=== PATIENT | male | born 1965 | race African-American/Black ===

== ENCOUNTER 2017-02-06 11:13 | Emergency (ER) | payer MEDICAID ==
[~2017-02-06] VITALS: Ht 170.2 cm; Wt 110.0 kg
[~2017-02-06 11:13] MED LIST: FLUT12HF IH; HYDR-3307 PO; LISI2.5T PO; TIZA4CAP2 PO
[2017-02-06] MEDS ORDERED: ALBU8.5H8 INH (11:59)
[2017-02-06 12:19] LABS: HEMATOCRIT 42.9 % (39.2-51.8); HEMOGLOBIN 14.3 g/dL (13.7-18.0); WHITE BLOOD COUNT 7.9 x10^3/uL (3.4-10)
[2017-02-06 12:27] LABS: ASPARTATE AMINO TRANSFERASE 21 U/L (15-37); BLOOD UREA NITROGEN 14 mg/dL (7-18)
[2017-02-06 14:35] VITALS: BP 129/84
== END 2017-02-06 15:14 | disposition home or self-care (01) ==
LOC: ED 12:16
DX: R10.9 Unspecified abdominal pain (principal); I10 Essential (primary) hypertension; Z90.49 Acquired absence of other specified parts of digestive tract; J44.9 Chronic obstructive pulmonary disease, unspecified; F20.9 Schizophrenia, unspecified
CPT/HCPCS: 36415; 74176; 80053; 81003; 83690; 85025; 99285

== ENCOUNTER 2018-03-28 12:01 | Emergency (ER) | payer MEDICAID ==
[~2018-03-28] VITALS: Ht 165.1 cm; Wt 117.5 kg
[~2018-03-28 12:01] MED LIST changes: +ALBU8.5H8 INH; +DOXE45CR5 PO; +GABA300C10 PO; +LISI-170 PO; +PHEN473S4 PO
[2018-03-28 12:23] VITALS: BP 124/84
--- NOTE | 2018-03-28 12:25 | NUR ---
PT ARRIVES VIA EMS FROM HOME WITH C/O OF CHEST PAIN ON LEFT SIDE X 2 DAYS. PT ON EXAM IS DIZZY FROM FENTANYL PUSH HE RECIEVED IN ROUTE OF 100MICS. PT REPROTS CHEST PAIN ONLY WENT DOWN TO A 5 FROM 8. HE REPORTS THE CHEST PAIN STABBING. DENIES RADIATION. PT ON ARRIVAL DOES HAVE VERY LIGHT WHEEZING HEARD THROUGHOUT HIS LUNGS ON AUSCULTATION. PT DENIES TRAUMA. PT CONNECTED TO ALL MONITORS AND CALL LIGHT IN REACH. AWAITING FURTHER ORDERS AT THIS TIME. PT IS RESTING IN BED.
[2018-03-28 12:30] LABS: BASOPHILS # (AUTO) 0.01 x10^3/uL (0-0.1); BASOPHILS % (AUTO) 0 % (0-1); EOSINOPHILS # (AUTO) 0.09 x10^3/uL (0-0.4); EOSINOPHILS % (AUTO) 2 % (1-7); LYMPHOCYTES # (AUTO) 1.39 x10^3/uL (1-3.4); LYMPHOCYTES % (AUTO) 23 % (22-44); MD NO; MEAN CORPUSCULAR HEMOGLOBIN 26.4 pg (27.5-34.5); MEAN CORPUSCULAR HGB CONC 32.9 g/dL (33.2-36.2); MEAN CORPUSCULAR VOLUME 80.4 fL (81-97); MEAN PLATELET VOLUME 8.2 fL (7.4-10.4); MONOCYTES # (AUTO) 0.54 x10^3/uL (0.2-0.8); MONOCYTES % (AUTO) 9 % (2-9); NEUTROPHILS # (AUTO) 3.94 x10^3/uL (1.8-6.8); NEUTROPHILS % (AUTO) 66 % (42-75); PLATELET COUNT 203 x10^3/uL (130-400); RED BLOOD COUNT 5.49 x10^6/uL (4.38-5.82); RED CELL DISTRIBUTION WIDTH 16.5 % (9.4-14.8)
[2018-03-28] MEDS ORDERED: MORPHINE SULFATE 4 MG/ML, 1ML IVPush PRN (12:30)
[2018-03-28] MEDS ORDERED: SODIUM CHLORIDE FLUSH 10ML SYR IVF ONE (12:30)
[2018-03-28] MEDS ORDERED: ONDANSETRON 2MG/ML, 2ML ONE (12:37)
[2018-03-28 12:44] LABS: ALANINE AMINOTRANSFERASE 24 U/L (12-78); ALBUMIN 3.4 g/dL (3.4-5.0); ANION GAP 4 mmol/L (5-15); CHLORIDE 106 mmol/L (98-107); CREATININE 1.02 mg/dL (0.7-1.3)
[2018-03-28 12:48] LABS: ALKALINE PHOSPHATASE 123 U/L (45-117); BILIRUBIN,TOTAL 0.3 mg/dL (0.2-1.0); TOTAL PROTEIN 7.4 g/dL (6.4-8.2); TROPONIN I < 0.015 ng/mL (0.000-0.045)
[2018-03-28] MEDS ORDERED: ONDANSETRON 2MG/ML, 2ML IVPush ONE (13:00)
[2018-03-28] MEDS ORDERED: KETOROLAC 30 MG/1 ML IVPush ONE (13:30)
--- NOTE | 2018-03-28 13:30 | NUR ---
pt found in low 80s spo2, pt refusing tbadm at this time. spoek with pt about risks of going home and potential cardiac arrest. Pt at this time would like to still go home. Pt signed ama form.
== END 2018-03-28 14:04 | disposition home or self-care (01) ==
LOC: ED 13:30
DX: R07.89 Other chest pain (principal); J43.9 Emphysema, unspecified; R73.09 Other abnormal glucose; I10 Essential (primary) hypertension; M54.9 Dorsalgia, unspecified; G89.29 Other chronic pain; Z87.891 Personal history of nicotine dependence; F31.9 Bipolar disorder, unspecified; F20.9 Schizophrenia, unspecified; Z90.49 Acquired absence of other specified parts of digestive tract
CPT/HCPCS: 36415; 71046; 80053; 84484; 85025; 93005; 96374; 99284; J2405; J7512

== ENCOUNTER 2018-04-01 16:54 | Emergency (ER) | payer MEDICAID ==
[~2018-04-01] VITALS: Ht 170.2 cm; Wt 116.0 kg
[2018-04-01 17:29] LABS: MEAN CORPUSCULAR HEMOGLOBIN 27.2 pg (27.5-34.5); MEAN CORPUSCULAR HGB CONC 33.5 g/dL (33.2-36.2); MEAN PLATELET VOLUME 8.3 fL (7.4-10.4); PLATELET COUNT 243 x10^3/uL (130-400); RED CELL DISTRIBUTION WIDTH 16.7 % (9.4-14.8)
--- NOTE | 2018-04-01 17:34 | NUR ---
PT TO ROOM FROM LOBBY AT THIS TIME.
[2018-04-01 17:39] LABS: ALANINE AMINOTRANSFERASE 22 U/L (12-78); ALBUMIN 3.5 g/dL (3.4-5.0); ANION GAP 6 mmol/L (5-15); CALCIUM 9.1 mg/dL (8.5-10.1); CHLORIDE 103 mmol/L (98-107); CREATININE 1.19 mg/dL (0.7-1.3)
[2018-04-01 17:41] LABS: ALKALINE PHOSPHATASE 147 U/L (45-117); BILIRUBIN,TOTAL 0.3 mg/dL (0.2-1.0); TOTAL PROTEIN 7.8 g/dL (6.4-8.2)
[2018-04-01] MEDS ORDERED: ACETAMINOPHEN 325 MG TABLET PO ONE (18:00)
[2018-04-01] MEDS ORDERED: ALBUTEROL/IPRATROPIUM 2.5MG/0.5MG, 3 ML NPPB SCH (18:00)
[2018-04-01 18:04] LABS: MD YES
[2018-04-01 18:10] LABS: BASOS#(MANUAL) 0.09 x10^3/uL (0-0.1); BASOS% (MANUAL) 1 % (0-1); LYMPH#(MANUAL) 1.07 x10^3/uL (1-3.4); LYMPHS% (MANUAL) 12 % (22-44); MONOS#(MANUAL) 0.45 x10^3/uL (0.3-2.7); MONOS% (MANUAL) 5 % (2-9); REACTIVE LYMPHS # (MANUAL) 0.45 x10^3/uL (0-0); REACTIVE LYMPHS % (MANUAL) 5 % (0-0); SEG#(MANUAL) 6.85 x10^3/uL (1.8-6.8); SEGS% (MANUAL) 77 % (42-75)
[2018-04-01 18:11] LABS: <PLATELET ESTIMATE> ADEQUATE; <PLT MORPHOLOGY> NORMAL PLT MORPH; <RBC MORPHOLOGY> NORMAL
--- NOTE | 2018-04-01 18:53 | NUR ---
RECEIVED BS REPORT FROM SEDRICK VELAZQUEZ TO ASSUME PT. CARE AT THIS TIME. PT. RESTING ON GURNEY WITH NADN. CALL LIGHT IN REACH. ALL SAFETY MEASURES OBSERVED. ALL MONITORS IN PLACE.
--- NOTE | 2018-04-01 19:01 | NUR ---
DR. HOGAN AT TO DISCUSS POC WITH PT.
[2018-04-01] MEDS ORDERED: KETOROLAC 30 MG/1 ML ONE (19:15)
--- NOTE | 2018-04-01 19:22 | NUR ---
pt given im, per md order. no iv. 5 rights verified, scanned med, route different.
[2018-04-01] MEDS ORDERED: LIDODERM 5% PATCH TD ONE ×2 (19:23→19:30)
[2018-04-01] MEDS ORDERED: KETOROLAC 30 MG/1 ML IVPush ONE (19:30)
[2018-04-01] MEDS ORDERED: ACETAMINOPHEN 500 MG TABLET ONE (19:30)
[2018-04-01 19:32] VITALS: BP 118/83
== END 2018-04-01 19:35 | disposition home or self-care (01) ==
LOC: ED 19:21
DX: R07.89 Other chest pain (principal); J44.1 Chronic obstructive pulmonary disease with (acute) exacerbation; Z90.49 Acquired absence of other specified parts of digestive tract; Z87.891 Personal history of nicotine dependence; F31.9 Bipolar disorder, unspecified; I10 Essential (primary) hypertension; F20.9 Schizophrenia, unspecified; M54.2 Cervicalgia; G89.29 Other chronic pain
CPT/HCPCS: 36415; 71045; 80053; 83690; 85025; 85379; 93005; 94640; 96374; 99284; J1885; J7620

== ENCOUNTER 2020-08-08 04:43 | Emergency (ER) | payer MEDICAID ==
[~2020-08-08] VITALS: Ht 170.2 cm; Wt 109.5 kg
[~2020-08-08 04:43] MED LIST changes: +HYDR-3248 PO; -HYDR-3307 PO
[2020-08-08 05:27] LABS: BASOPHILS % (AUTO) 1 % (0-1); EOSINOPHILS % (AUTO) 3 % (1-7); LYMPHOCYTES % (AUTO) 21 % (22-44); MEAN CORPUSCULAR HEMOGLOBIN 27.6 pg (27.5-34.5); MEAN CORPUSCULAR HGB CONC 33.6 g/dL (33.2-36.2); MONOCYTES % (AUTO) 13 % (2-9); NEUTROPHILS % (AUTO) 62 % (42-75); PLATELET COUNT 207 x10^3/uL (130-400); RED BLOOD COUNT 5.72 x10^6/uL (4.38-5.82); RED CELL DISTRIBUTION WIDTH 16.1 % (9.4-14.8)
[2020-08-08] MEDS ORDERED: ASPIRIN 81 MG TABLET CHEW PO ONE (05:30)
[2020-08-08] MEDS ORDERED: SODIUM CHLORIDE FLUSH 10ML SYR IVF ONE (05:30)
[2020-08-08] MEDS ORDERED: MORPHINE SULFATE 4 MG/ML, 1ML IVPush PRN (05:30)
[2020-08-08] MEDS ORDERED: ASPIRIN 81 MG TABLET CHEW ONE (05:40)
[2020-08-08 05:42] LABS: ALBUMIN 3.2 g/dL (3.4-5.0); ANION GAP 4 mmol/L (5-15); CALCIUM 8.6 mg/dL (8.5-10.1); CHLORIDE 106 mmol/L (98-107)
[2020-08-08 05:51] LABS: ALANINE AMINOTRANSFERASE 21 U/L (12-78); ALKALINE PHOSPHATASE 109 U/L (45-117); BILIRUBIN,TOTAL 0.4 mg/dL (0.2-1.0); CREATININE 0.92 mg/dL (0.7-1.3); TOTAL PROTEIN 7.5 g/dL (6.4-8.2); TROPONIN I < 0.015 ng/mL (0.000-0.045)
[2020-08-08 05:58] VITALS: BP 132/87
== END 2020-08-08 06:50 | disposition home or self-care (01) ==
LOC: ED 06:43
DX: R07.2 Precordial pain (principal); E11.9 Type 2 diabetes mellitus without complications
CPT/HCPCS: 36415; 71045; 80053; 84484; 85025; 93005; 99285